=== PATIENT | male | born 1995 | race Caucasian/White ===

== ENCOUNTER 2019-02-17 10:56 | Inpatient (IN) | payer MEDICAID ==
[~2019-02-17] VITALS: Ht 170.2 cm; Wt 57.0 kg
[2019-02-17] MEDS ORDERED: DEXAMETHASONE 4 MG/ML, 1ML ONE (10:59)
[2019-02-17] MEDS ORDERED: SUCCINYLCHOLINE 20 MG/ML, 10ML ONE (10:59)
[2019-02-17] MEDS ORDERED: SODIUM CHLORIDE 0.9% 1,000 ML IV ONE (11:41)
--- NOTE | 2019-02-17 11:41 | NUR ---
MD IS AT THE BEDSIDE FOR CONSULT.
[2019-02-17] MEDS ORDERED: DEXAMETHASONE 4 MG/ML, 1ML IVPush ONE (12:00)
[2019-02-17] MEDS ORDERED: SODIUM CHLORIDE FLUSH 10ML SYR IVF ONE (12:00)
[2019-02-17] MEDS ORDERED: AMPICILLIN/SULBACTAM 3 GM in SODIUM CHLORIDE 0.9% 100 ML IV ONE (12:00)
[2019-02-17 12:15] LABS: BASOPHILS # (AUTO) 0.02 x10^3/uL (0-0.1); BASOPHILS % (AUTO) 0 % (0-1); EOSINOPHILS # (AUTO) 0.14 x10^3/uL (0-0.4); EOSINOPHILS % (AUTO) 1 % (1-7); LYMPHOCYTES # (AUTO) 1.34 x10^3/uL (1-3.4); LYMPHOCYTES % (AUTO) 10 % (22-44); MD NO; MEAN CORPUSCULAR HEMOGLOBIN 29.5 pg (27.5-34.5); MEAN CORPUSCULAR HGB CONC 33.4 g/dL (33.2-36.2); MEAN CORPUSCULAR VOLUME 88.3 fL (81-97); MEAN PLATELET VOLUME 7.4 fL (7.4-10.4); MONOCYTES # (AUTO) 0.87 x10^3/uL (0.2-0.8); MONOCYTES % (AUTO) 7 % (2-9); NEUTROPHILS # (AUTO) 10.77 x10^3/uL (1.8-6.8); NEUTROPHILS % (AUTO) 82 % (42-75); PLATELET COUNT 389 x10^3/uL (130-400); RED BLOOD COUNT 4.98 x10^6/uL (4.38-5.82); RED CELL DISTRIBUTION WIDTH 13.8 % (9.4-14.8)
[2019-02-17 12:25] LABS: ALBUMIN 3.4 g/dL (3.4-5.0); ANION GAP 9 mmol/L (5-15); CALCIUM 8.7 mg/dL (8.5-10.1); CHLORIDE 106 mmol/L (98-107)
[2019-02-17 12:29] LABS: ALANINE AMINOTRANSFERASE 26 U/L (12-78); ALKALINE PHOSPHATASE 93 U/L (45-117); BILIRUBIN,TOTAL 0.8 mg/dL (0.2-1.0); CREATININE 0.72 mg/dL (0.7-1.3); TOTAL PROTEIN 7.5 g/dL (6.4-8.2)
[2019-02-17] MEDS ORDERED: DEXAMETHASONE 4 MG/ML, 5ML ONE (12:50)
--- NOTE | 2019-02-17 13:36 | NUR ---
PT TO AND FROM CT WITH UMEHS. HE TOLERATED THE IMAGING WELL. I WILL CONTINUE TO MONITOR AND TREAT ORDERED, WELL PRN, WHILE AWAITING DIAGNOSTIC RESULTS.
[2019-02-17] MEDS ORDERED: OMNIPAQUE 350 MG/ML, 100ML BOTTLE ONE (13:38)
[2019-02-17] MEDS ORDERED: morphine SULFATE 10 MG/ML, 1ML IVPush PRN (16:00)
[2019-02-17] MEDS ORDERED: OXYcodone IR 5MG TABLET PO PRN (16:00)
[2019-02-17] MEDS ORDERED: ONDANSETRON 2MG/ML, 2ML IVPush PRN (16:00)
[2019-02-17] MEDS ORDERED: ACETAMINOPHEN 325 MG TABLET PO PRN ×2 (16:00→20:30)
--- NOTE | 2019-02-17 16:11 | NUR ---
PT SLEEPING SONOROUSLY ON AN E.R. GURNEY. WE ARE AWAITING A ROOM ASSIGNMENT FOR ADMISSION AT THIS TIME. HE IS EDUCATED IN REGARD TO HIS SURGERY. VSC ARE STABLE, AND I WILL CONTINUE TO MONITOR AND TREAT ORDERED, WELL PRN.
[2019-02-17] MEDS: AMPICILLIN/SULBACTAM 3 GM in SODIUM CHLORIDE 0.9% 100 ML IV SCH ×2 (16:21→23:49)
--- NOTE | 2019-02-17 16:44 | NUR ---
PT TO XR W TECH
[2019-02-17] MEDS ORDERED: BUPIVACAINE/PF-EPI 0.25% 1:200K ONE (18:34)
[2019-02-17] MEDS ORDERED: LIDOCAINE 1%-EPI 1:100K, 20ML ONE (18:34)
[2019-02-17] MEDS ORDERED: FENTANYL PF 100 MCG/2ML ONE ×3 (19:52→20:14)
[2019-02-17] MEDS ORDERED: MIDAZOLAM 1 MG/ML, 2ML ONE (20:28)
[2019-02-17] MEDS ORDERED: PROPOFOL 100 ML ONE (20:30)
[2019-02-17] MEDS ORDERED: hydrALAzine 20 MG/ML, 1ML IV PRN (20:30)
[2019-02-17] MEDS ORDERED: PROMETHAZINE 25 MG/ML, 1ML IV PRN (20:30)
[2019-02-17] MEDS ORDERED: LABETALOL 5MG/ML, 20ML IV PRN (20:30)
[2019-02-17] MEDS ORDERED: DIAZEPAM 5 MG/ML, 2ML IVPush PRN (20:30)
[2019-02-17] MEDS ORDERED: FENTANYL PF 100 MCG/2ML IV PRN (20:30)
[2019-02-17] MEDS ORDERED: OXYcodone 5 MG/5 ML ORAL.SOL UDC PO PRN (20:30)
[2019-02-17] MEDS ORDERED: HYDROmorphone 2 MG/ML, 1ML IVPush PRN (20:30)
[2019-02-17] MEDS ORDERED: KETOROLAC 30 MG/1 ML IV PRN (20:30)
[2019-02-17] MEDS ORDERED: MEPERIDINE/PF 25MG/0.5ML IVPush PRN (20:30)
[2019-02-17] MEDS ORDERED: ALBUTEROL SULFATE 2.5 MG/3 ML NPPB PRN (20:30)
[2019-02-17] MEDS: PROPOFOL 100 ML IV PRN (21:00)
[2019-02-17] MEDS ORDERED: PROPOFOL 0 ML IV ONE (21:16)
[2019-02-17] MEDS: CHLORHEXIDINE 15 ML UDC MM SCH (21:29)
[2019-02-17] MEDS ORDERED: GLUCAGON 1 MG IM PRN (22:30)
[2019-02-17] MEDS ORDERED: BISACODYL 10 MG SUPP PR PRN (22:30)
[2019-02-17] MEDS ORDERED: SENNA 176 MG/5 ML ORAL SOL NG PRN (22:30)
[2019-02-17] MEDS ORDERED: LACTULOSE 20 GM/30 ML UDC NG PRN (22:30)
[2019-02-17] MEDS ORDERED: DEXTROSE 50%, 50ML SYRINGE IVPush PRN (22:30)
[2019-02-17] MEDS ORDERED: PHARMACY MAY ADJ FOR RENAL FX MC SCH (22:30)
[2019-02-17] MEDS ORDERED: SENNA/DOCUSATE TABLET NG PRN (22:30)
[2019-02-17] MEDS ORDERED: LIDOCAINE-MPF 1%, 2ML ENDO PRN (22:30)
[2019-02-17] MEDS ORDERED: DEXTROSE 4 GM TAB.CHEW PO PRN (22:30)
[2019-02-17] MEDS ORDERED: FENTANYL PF 100 MCG/2ML IVPush PRN (22:30)
[2019-02-17] MEDS ORDERED: ALBUTEROL/IPRATROPIUM 2.5MG/0.5MG, 3 ML INLINE SCH (22:30)
[2019-02-17] MEDS: NICOTINE 14MG/24 HR PATCH.TD24 TD SCH (23:05)
[2019-02-17] MEDS: SODIUM CHLORIDE 0.9% 1,000 ML IV SCH (23:05)
[2019-02-17] MEDS ORDERED: MIDAZOLAM HCL 25 MG in SODIUM CHLORIDE 0.9% 245 ML IV PRN (23:30)
[2019-02-18] MEDS: PROPOFOL 100 ML IV PRN ×2 (01:31→05:28)
[2019-02-18 04:30] LABS: MEAN CORPUSCULAR HEMOGLOBIN 29.6 pg (27.5-34.5); MEAN CORPUSCULAR HGB CONC 33.6 g/dL (33.2-36.2); MEAN CORPUSCULAR VOLUME 88.1 fL (81-97); MEAN PLATELET VOLUME 7.2 fL (7.4-10.4); PLATELET COUNT 380 x10^3/uL (130-400); RED BLOOD COUNT 4.26 x10^6/uL (4.38-5.82); RED CELL DISTRIBUTION WIDTH 13.4 % (9.4-14.8)
[2019-02-18 04:40] LABS: ANION GAP 6 mmol/L (5-15); CALCIUM 8.2 mg/dL (8.5-10.1); CHLORIDE 109 mmol/L (98-107); CREATININE 0.55 mg/dL (0.7-1.3)
[2019-02-18 04:44] LABS: MD YES
[2019-02-18 04:45] LABS: BAND#(MANUAL) 0.15 x10^3/uL; BANDS%(MANUAL) 1 % (0-7); LYMPH#(MANUAL) 1.06 x10^3/uL (1-3.4); LYMPHS% (MANUAL) 7 % (22-44); MONOS#(MANUAL) 0.76 x10^3/uL (0.3-2.7); MONOS% (MANUAL) 5 % (2-9); SEG#(MANUAL) 13.22 x10^3/uL (1.8-6.8); SEGS% (MANUAL) 87 % (42-75)
[2019-02-18 04:46] LABS: <PLATELET ESTIMATE> ADEQUATE; <PLT MORPHOLOGY> NORMAL PLT MORPH; <RBC MORPHOLOGY> NORMAL
[2019-02-18] MEDS: AMPICILLIN/SULBACTAM 3 GM in SODIUM CHLORIDE 0.9% 100 ML IV SCH ×4 (06:14→23:57)
[2019-02-18] MEDS ORDERED: SODIUM CHLORIDE FLUSH 10ML SYR IVF SCH (09:00)
[2019-02-18] MEDS: CHLORHEXIDINE 15 ML UDC MM SCH (09:10)
[2019-02-18] MEDS: SODIUM CHLORIDE 0.9% 1,000 ML IV SCH ×2 (11:21→21:00)
[2019-02-18] MEDS: NICOTINE 14MG/24 HR PATCH.TD24 TD SCH (18:30)
[2019-02-18 19:27] VITALS: BP 108/68
[2019-02-18] MEDS: CHLORHEXIDINE GLUCONATE MOUTHWASH 0.12%, 473ML MM SCH (21:46)
[2019-02-19 01:33] VITALS: BP 95/61
[2019-02-19] MEDS: AMPICILLIN/SULBACTAM 3 GM in SODIUM CHLORIDE 0.9% 100 ML IV SCH ×2 (05:36→11:30)
[2019-02-19 06:46] LABS: MEAN CORPUSCULAR HEMOGLOBIN 29.2 pg (27.5-34.5); MEAN CORPUSCULAR HGB CONC 33.1 g/dL (33.2-36.2); MEAN CORPUSCULAR VOLUME 88.4 fL (81-97); MEAN PLATELET VOLUME 7.2 fL (7.4-10.4); PLATELET COUNT 429 x10^3/uL (130-400); RED BLOOD COUNT 4.59 x10^6/uL (4.38-5.82); RED CELL DISTRIBUTION WIDTH 13.8 % (9.4-14.8)
[2019-02-19 07:39] VITALS: BP 122/82
[2019-02-19 07:56] LABS: BASOPHILS # (AUTO) 0.07 x10^3/uL (0-0.1); BASOPHILS % (AUTO) 1 % (0-1); EOSINOPHILS # (AUTO) 0.14 x10^3/uL (0-0.4); EOSINOPHILS % (AUTO) 1 % (1-7); LYMPHOCYTES # (AUTO) 2.95 x10^3/uL (1-3.4); LYMPHOCYTES % (AUTO) 28 % (22-44); MD SCAN; MONOCYTES # (AUTO) 0.87 x10^3/uL (0.2-0.8); MONOCYTES % (AUTO) 8 % (2-9); NEUTROPHILS # (AUTO) 6.35 x10^3/uL (1.8-6.8); NEUTROPHILS % (AUTO) 61 % (42-75)
[2019-02-19] MEDS: SODIUM CHLORIDE 0.9% 1,000 ML IV SCH (09:00)
[2019-02-19] MEDS: CHLORHEXIDINE GLUCONATE MOUTHWASH 0.12%, 473ML MM SCH (09:00)
[2019-02-19] MEDS ORDERED: CHLO473M MM (10:26)
[2019-02-19] MEDS ORDERED: AMOX1TAB61 PO (10:26)
[2019-02-19] MEDS ORDERED: FLU VACC QS2019-20 36MOS UP/PF 0.5 ML IM-VACC ONE (13:00)
[2019-02-19 13:06] VITALS: BP 122/87
== END 2019-02-19 13:30 | disposition home or self-care (01) | DRG 131 ==
LOC: ED 14:54 → EDIP 14:58 → SUATTDRO 15:01 → 3N 18:16 → CCU 20:44 → 4NE 02-18 13:10 → DCLOUNGE 02-19 13:26
PROVIDERS: ADMIT Hospitalist; ATTEND Internal Medicine
PROC: 0CDXXZ1 Extraction of Lower Tooth, Multiple, External Approach (ICD-10-PCS; 2019-02-17)
PROC: 0CDWXZ0 Extraction of Upper Tooth, Single, External Approach (ICD-10-PCS; 2019-02-17)
PROC: 5A1935Z Respiratory Ventilation, Less than 24 Consecutive Hours (ICD-10-PCS; 2019-02-17)
PROC: 0NQ Head and Facial Bones, Repair (ICD-10-PCS; principal; 2019-02-17 20:00)
DX: K12.2 Cellulitis and abscess of mouth (principal); J96.01 Acute respiratory failure with hypoxia; Z99.11 Dependence on respirator [ventilator] status; F17.210 Nicotine dependence, cigarettes, uncomplicated; K01.1 Impacted teeth; K02.9 Dental caries, unspecified; K04.7 Periapical abscess without sinus
CPT/HCPCS: 36415; 36600; 70100; 70491; 71045; 74018; 80048; 80053; 82803; 83735; 84478; 85025; 87040; 87070; 87075; 87076; 87081; 87205; 90686; 94002; 94003; 96365; 96366; 96375; 99285; G0378; J0295; J1100; J2250; J2704; J3010; J3490; Q9967; J0330; J7030; J7050